=== PATIENT | male | born 1985 | race Caucasian/White ===

== ENCOUNTER 2019-03-08 00:25 | Emergency (ER) | payer SELFPAY ==
[~2019-03-08] VITALS: Ht 180.3 cm; Wt 117.0 kg
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
[2019-03-08] MEDS ORDERED: ORPHENADRINE CITRATE 60 MG/2 ML VIAL. IM ONE (01:30)
[2019-03-08] MEDS ORDERED: TETANUS AND DIPHTHERIA TOX/PF 0.5 ML VIAL. VAX IM ONE (01:30)
[2019-03-08] MEDS ORDERED: MORPHINE SULFATE 10 MG/ML SYRINGE. SQ ONE (01:30)
[2019-03-08] MEDS ORDERED: HYDR-1179 PO (01:45)
[2019-03-08 02:45] VITALS: BP 126/79
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
== END 2019-03-08 02:45 | disposition home or self-care (01) ==
LOC: ER 00:25
DX: S62.002A Unspecified fracture of navicular [scaphoid] bone of left wrist, initial encounter for closed fracture (principal); S62.235A Other nondisplaced fracture of base of first metacarpal bone, left hand, initial encounter for closed fracture; S83.91XA Sprain of unspecified site of right knee, initial encounter; S50.01XA Contusion of right elbow, initial encounter; S70.01XA Contusion of right hip, initial encounter; S80.212A Abrasion, left knee, initial encounter; V29.49XA Motorcycle driver injured in collision with other motor vehicles in traffic accident, initial encounter; Y93.I9 Activity, other involving external motion; Y92.488 Other paved roadways as the place of occurrence of the external cause; Y99.8 Other external cause status
CPT/HCPCS: 29125; 71046; 72170; 73130; 73564; 73590; 90471; 90714; 96372; 99284; J2270; J2360

== ENCOUNTER 2020-06-30 16:55 | Emergency (ER) | payer SELFPAY ==
[~2020-06-30] VITALS: Ht 180.3 cm; Wt 111.0 kg
[~2020-06-30 16:55] MED LIST: HYDR-1179 PO
[2020-06-30 17:03] VITALS: BP 122/55
[2020-06-30] MEDS ORDERED: IOHEXOL 300 MG/ML 75 ML VIAL. IV ONE (18:00)
[2020-06-30 18:10] LABS: BARBITURATES NEG (NEG); BENZODIAZEPINES NEG (NEG); CANNABINOIDS NEG (NEG); COCAINE NEG (NEG); METHADONE NEG (NEG); OPIATES NEG (NEG); PHENCYCLIDINE NEG (NEG)
[2020-06-30 18:10] LABS: CALCIUM 9.3 mg/dL (8.5-10.1); CREATININE 1.1 mg/dL (0.7-1.3); GFR 77.1; POTASSIUM 4.3 mmol/L (3.5-5.1)
[2020-06-30 18:11] LABS: AMPHETAMINE/METHAMPHETAMINE NEG (NEG)
[2020-06-30 18:13] LABS: COLOR,URINE AMBER
[2020-06-30 18:13] LABS: BASO # 0.1 x10^3/uL (0.0-0.2); BASO % 1 % (0-3); EOS # 0.2 x10^3/uL (0.0-0.7); EOS % 2 % (0-3); HEMATOCRIT 47.3 % (39.0-53.0); LYMPH # 2.1 x10^3/uL (1.0-4.8); LYMPH % 26 % (24-48); MEAN CORPUSCULAR HEMOGLOBIN 32 pg (25-35); MEAN CORPUSCULAR HGB CONC 34 g/dL (31-37); MEAN CORPUSCULAR VOLUME 95 fL (79-100); MONO # 0.7 x10^3/uL (0.0-1.1); MONO % 9 % (0-9); NEUT # 4.9 x10^3uL (1.8-7.7); NEUT % 62 % (31-73); PLATELET COUNT 200 x10^3/uL (140-400); RED BLOOD COUNT 4.97 x10^6/uL (4.30-5.70); RED CELL DISTRIBUTION WIDTH 13.1 % (11.5-14.5)
[2020-06-30 18:14] LABS: BACTERIA,URINE 0 /HPF (0-FEW); BILIRUBIN,URINE NEG (NEG); CLARITY,URINE CLEAR; GLUCOSE,URINE NEG (NEG); NITRITE,URINE NEG (NEG); RBC,URINE 0 /HPF (0-2); WBC,URINE 0 /HPF (0-4)
[2020-06-30 18:22] LABS: ALBUMIN 3.6 g/dL (3.4-5.0); ALBUMIN/GLOBULIN RATIO 0.9 (1.0-1.7); MAGNESIUM 1.8 mg/dL (1.8-2.4); TOTAL BILIRUBIN 1.8 mg/dL (0.2-1.0); TOTAL PROTEIN 7.4 g/dL (6.4-8.2)
--- NOTE | 2020-06-30 18:27 | RAD ---
CT abdomen pelvis with contrast dated 06/30/2020. No comparison available. CLINICAL INDICATION: Low abdominal and pelvic pain. TECHNIQUE: Contiguous axial imaging the M pelvis performed after the administration of 75 cc Omnipaque 300. One or more of the following individualized dose reduction techniques were utilized for this examination: 1. Automated exposure control 2. Adjustment of the mA and/or kV according to patient size 3. Use of iterative reconstruction technique. FINDINGS: Limited images of lung bases are clear. Heart size within normal limits. No pleural or pericardial effusion. Liver is diffuse low-density, compatible with fatty infiltration. No apparent mass. Biliary tree normal in caliber. Gallbladder unremarkable. Spleen is normal in size. Pancreas, adrenal glands and kidneys are unremarkable. No hydronephrosis. Unopacified GI tract normal in caliber and contour. No focal bowel wall thickening. There is a tubular focus at the tip of the cecum measures up to 1.4 cm which could represent the appendix, although there is no significant inflammatory changes in the region. There is some fatty replacement of the submucosa involving the transverse colon, right colon and left colon, likely related to prior episodes of colitis. No adenopathy or ascites. The small bowel is normal in caliber. Abdominal aorta normal in caliber. Images of pelvis show nondistended urinary bladder. Prostate gland normal in size. No free fluid or lymphadenopathy. Small bilateral inguinal hernia containing only fat. Bone windows show no acute findings. IMPRESSION: 1. There is a tubular focus at the cecal tip that measures up to 1.4 cm diameter and could represent an enlarged appendix. There are no inflammatory changes in the region and this could be a normal variant or related to mild appendicitis or chronic appendicitis. Correlate with physical exam findings and laboratory data. 2. Otherwise no significant abnormality. 3. Fatty infiltration of the liver. Electronically signed by: Abel Camarillo MD (06/30/2020 6:24 PM) [facility]
--- NOTE | 2020-06-30 18:39 | PHYS DOC ---
Past History Past Medical History: GERD (FANNY TOM DO) Past Surgical History: Other Additional Past Surgical Histo: RIGHT HAND, WISDOME TEETH (FANNY TOM DO) Additional Smoking Information: 1PPD Alcohol Use: Heavy Additional Alcohol Information: 1/2 P[place] PER DAY Drug Use: None (FANNY TOM DO) General Adult EDM: Chief Complaint: ABDOMINAL PAIN HPI: HPI: 35-year-old obese male past medical history of daily alcohol abuse, presents to the ED with complaints of mid abdominal and lower abdominal pain for the past few days, states it is dull and aching today but was sharp yesterday. His last bowel movement was today and was normal brown color, denies any hard stools - reports they are loose and watery but believes is due to his alcohol abuse. Also reports some nonbloody nonbilious vomiting but states that is because he relies on nicotine and forgets to eat, becomes nauseous and starts to vomit. Denies any other drug use. Has no past surgical history. States he has had a knot just above his umbilicus for years and is concerned for mass or tumor. (FANNY TOM DO) Review of Systems: Review of Systems: Constitutional: Denies fever or chills Eyes: Denies change in visual acuity HENT: Denies nasal congestion or sore throat Respiratory: Denies cough or shortness of breath Cardiovascular: Denies chest pain or edema GI: Denies bloody stools : Denies dysuria Musculoskeletal: Denies back pain or joint pain Integument: Denies rash Neurologic: Denies headache, focal weakness or sensory changes Endocrine: Denies polyuria or polydipsia Lymphatic: Denies swollen glands Psychiatric: Denies depression or anxiety (FANNY TOM DO) Heart Score: Risk Factors: Risk Factors: DM, Current or recent (<one month) smoker, HTN, HLP, family history of CAD, obesity. Risk Scores: Score 0 - 3: 2.5% MACE over next 6 weeks - Discharge Home Score 4 - 6: 20.3% MACE over next 6 weeks - Admit for Clinical Observation Score 7 - 10: 72.7% MACE over next 6 weeks - Early Invasive Strategies (FANNY TOM DO) Current Medications: Current Meds: Current Medications Medications (Trade) Dose Ordered Sig/Jeanne Start Time Stop Time Status Last Admin Dose Admin Iohexol (Omnipaque 300 Mg/ml) 75 ml 1X ONCE 06/30/20 18:00 06/30/20 18:01 DC 06/30/20 18:05 75 ML [facility] Allergies: Allergies: Allergies Coded Allergies Type Severity Reaction Last Updated Verified No Known Drug Allergies 06/30/20 No ([facility] Physical Exam: PE: Constitutional: Well developed, well nourished, no acute distress, non-toxic appearance. [] HENT: Normocephalic, atraumatic, bilateral external ears normal, oropharynx moist, no oral exudates, nose normal. [] Eyes: EOMI, conjunctiva normal, no discharge. [] Neck: Normal range of motion, no tenderness, supple, no stridor. [] Cardiovascular:Heart rate regular rhythm, no murmur [] Lungs & Thorax: Bilateral breath sounds clear to auscultation [] Abdomen: Bowel sounds normal, soft, obese, possible ventral hernia - repducible, no tenderness, no masses, no pulsatile masses. [] Skin: Warm, dry, no erythema, no rash. [] Back: No tenderness, no CVA tenderness. [] Extremities: No tenderness, no cyanosis, no clubbing, ROM intact, no edema. [] Neurologic: Alert and oriented X 3, normal motor function, normal sensory function, no focal deficits noted. [] Psychologic: Affect normal, judgement normal, mood normal. [] ([facility] Current Patient Data: Labs: Laboratory Tests Test 06/30/20 17:05 06/30/20 17:17 Urine Collection Type Unknown Urine Color Tonya Urine Clarity Clear Urine pH >8.5 Urine Specific [place] 1.020 Urine Protein 30 mg/dl (NEG-TRACE) Urine Glucose (UA) Neg mg/dL (NEG) Urine Ketones (Stick) Neg mg/dL (NEG) Urine Blood Neg (NEG) Urine Nitrite Neg (NEG) Urine Bilirubin Neg (NEG) Urine Urobilinogen Dipstick 2.0 mg/dL (0.2 mg/dL) Urine Leukocyte Esterase Neg (NEG) Urine RBC 0 /HPF (0-2) Urine WBC 0 /HPF (0-4) Urine Bacteria 0 /HPF (0-FEW) Urine Opiates Screen Neg (NEG) Urine Methadone Screen Neg (NEG) Urine Barbiturates Neg (NEG) Urine Phencyclidine Screen Neg (NEG) Urine Amphetamine/Methamphetamine Neg (NEG) Urine Benzodiazepines Screen Neg (NEG) Urine Cocaine Screen Neg (NEG) Urine Cannabinoids Screen Neg (NEG) Urine Ethyl Alcohol Neg (NEG) White Blood Count 8.0 x10^3/uL (4.0-11.0) Red Blood Count 4.97 x10^6/uL (4.30-5.70) Hemoglobin 16.0 g/dL (13.0-17.5) Hematocrit 47.3 % (39.0-53.0) Mean Corpuscular Volume 95 fL (79-100) Mean Corpuscular Hemoglobin 32 pg (25-35) Mean Corpuscular Hemoglobin Concent 34 g/dL (31-37) Red Cell Distribution Width 13.1 % (11.5-14.5) Platelet Count 200 x10^3/uL (140-400) Neutrophils (%) (Auto) 62 % (31-73) Lymphocytes (%) (Auto) 26 % (24-48) Monocytes (%) (Auto) 9 % (0-9) Eosinophils (%) (Auto) 2 % (0-3) Basophils (%) (Auto) 1 % (0-3) Neutrophils # (Auto) 4.9 x10^3uL (1.8-7.7) Lymphocytes # (Auto) 2.1 x10^3/uL (1.0-4.8) Monocytes # (Auto) 0.7 x10^3/uL (0.0-1.1) Eosinophils # (Auto) 0.2 x10^3/uL (0.0-0.7) Basophils # (Auto) 0.1 x10^3/uL (0.0-0.2) Sodium Level 140 mmol/L (136-145) Potassium Level 4.3 mmol/L (3.5-5.1) Chloride Level 103 mmol/L (98-107) Carbon Dioxide Level 26 mmol/L (21-32) Anion Gap 11 (6-14) Blood Urea Nitrogen 8 mg/dL (8-26) Creatinine 1.1 mg/dL (0.7-1.3) Estimated GFR (Cockcroft-Gault) 77.1 BUN/Creatinine Ratio 7 (6-20) Glucose Level 112 mg/dL (70-99) H Calcium Level 9.3 mg/dL (8.5-10.1) Magnesium Level 1.8 mg/dL (1.8-2.4) Total Bilirubin 1.8 mg/dL (0.2-1.0) H Aspartate Amino Transferase (AST) 79 U/L (15-37) H Alanine Aminotransferase (ALT) 107 U/L (16-63) H Alkaline Phosphatase 189 U/L (46-116) H Total Protein 7.4 g/dL (6.4-8.2) Albumin 3.6 g/dL (3.4-5.0) Albumin/Globulin Ratio 0.9 (1.0-1.7) L Lipase 120 U/L (73-393) Ethyl Alcohol Level < 10 mg/dL (0-10) Vital Signs: Vital Signs Date Time Temp Pulse Resp B/P (MAP) Pulse Ox O2 Delivery O2 Flow Rate FiO2 06/30/20 17:03 98.0 105 18 122/55 (77) 97 Room Air ([facility]) EKG: EKG: [] [facility] Radiology/Procedures: Radiology/Procedures: [] ([facility]) Impressions: CT abdomen pelvis with contrast dated 06/30/2020. No comparison available. CLINICAL INDICATION: Low abdominal and pelvic pain. TECHNIQUE: Contiguous axial imaging the M pelvis performed after the administration of 75 cc Omnipaque 300. One or more of the following individualized dose reduction techniques were utilized for this examination: 1. Automated exposure control 2. Adjustment of the mA and/or kV according to patient size 3. Use of iterative reconstruction technique. FINDINGS: Limited images of lung bases are clear. Heart size within normal limits. No pleural or pericardial effusion. Liver is diffuse low-density, compatible with fatty infiltration. No apparent mass. Biliary tree normal in caliber. Gallbladder unremarkable. Spleen is normal in size. Pancreas, adrenal glands and kidneys are unremarkable. No hydronephrosis. Unopacified GI tract normal in caliber and contour. No focal bowel wall thickening. There is a tubular focus at the tip of the cecum measures up to 1.4 cm which could represent the appendix, although there is no significant inflammatory changes in the region. There is some fatty replacement of the submucosa involving the transverse colon, right colon and left colon, likely related to prior episodes of colitis. No adenopathy or ascites. The small bowel is normal in caliber. Abdominal aorta normal in caliber. Images of pelvis show nondistended urinary bladder. Prostate gland normal in size. No free fluid or lymphadenopathy. Small bilateral inguinal hernia containing only fat. Bone windows show no acute findings. IMPRESSION: 1. There is a tubular focus at the cecal tip that measures up to 1.4 cm diameter and could represent an enlarged appendix. There are no inflammatory changes in the region and this could be a normal variant or related to mild appendicitis or chronic appendicitis. Correlate with physical exam findings and laboratory data. 2. Otherwise no significant abnormality. 3. Fatty infiltration of the liver. Electronically signed by: Abel Camarillo MD (06/30/2020 6:24 PM) [facility] [place] DICTATED AND SIGNED BY: ABEL CAMARILLO MD DATE: 06/30/20 182 CC: PCP,NO; FANNY TOM DO ~ (GHAZALA PINEDO DO) Course & Med Decision Making: Course & Med Decision Making Pertinent Labs and Imaging studies reviewed. (See chart for details) Patient was signed out at shift change, labs, urinalysis and CT imaging. Patient very calm and well-appearing on presentation. Due to shift change patient was signed out to Dr. Pinedo. (FANNY TOM DO) Course & Med Decision Making The patient's labs are remarkable for some elevated liver enzymes including bilirubin. CT scan does not show gallstones or enlargement of the bile duct system. There is some prominence around the appendix, but no inflammatory changes and this does not seem to be the focus of the patient's discomfort. Appendicitis seems unlikely at this time. Believe his discomfort is likely related to his gallbladder. I have advised that he follow-up with his primary care physician for further evaluation. He does not appear to have any life- threatening illnesses this time. He does not meet any admission criteria. He is stable for discharge at this time. (GHAZALA PINEDO DO) Dragon Disclaimer: Dragon Disclaimer: This electronic medical record was generated, in whole or in part, using a voice recognition dictation system. (FANNY TOM DO) Departure Departure: Impression: Primary Impression: Epigastric abdominal pain Additional Impression: Elevated liver enzymes Disposition: HOME/RESIDENCE PRIOR TO ADM Condition: STABLE Referrals: PCP,CONCEPCIÓN (PCP) Patient Instructions: Abdominal Pain, [id number] FANNY TOM DO Jun 30, 2020 18:39 GHAZALA PINEDO DO Jun 30, 2020 19:29
== END 2020-06-30 19:38 | disposition home or self-care (01) ==
LOC: ER 16:55
DX: R10.13 Epigastric pain (principal); R79.89 Other specified abnormal findings of blood chemistry; K21.9 Gastro-esophageal reflux disease without esophagitis; F17.200 Nicotine dependence, unspecified, uncomplicated; F10.20 Alcohol dependence, uncomplicated; Y90.0 Blood alcohol level of less than 20 mg/100 ml
CPT/HCPCS: 36415; 74177; 80053; 80307; 81001; 83690; 83735; 85025; 99285; G0480; Q9967